=== PATIENT | female | born 1975 | race African-American/Black ===

== ENCOUNTER 2017-11-29 14:32 | Emergency (ER) | payer MEDICAID ==
[~2017-11-29] VITALS: Ht 154.9 cm; Wt 80.0 kg
[2017-11-29 14:57] VITALS: BP 122/81; Ht 154.9 cm; Wt 80.0 kg
[2017-11-29] MEDS ORDERED: AZO (14:58)
[2017-11-29] MEDS ORDERED: SULFADIAZINE500 MG PO (14:59)
== END 2017-11-29 16:00 | disposition left against medical advice (07) ==
LOC: D.ER 14:32
DX: R30.0 Dysuria (principal)

== ENCOUNTER 2018-02-19 19:24 | Emergency (ER) | payer MEDICAID ==
[~2018-02-19] VITALS: Ht 154.9 cm; Wt 83.9 kg
[~2018-02-19 19:24] MED LIST: AZO; SULFADIAZINE500 MG PO
[2018-02-19 19:34] VITALS: Ht 154.9 cm; Wt 83.9 kg
[2018-02-19 20:17] LABS: APPEARANCE HAZY (CLEAR); BILIRUBIN NEGATIVE (NEGATIVE); COLOR RED (YELLOW); GLUCOSE NEGATIVE (NEGATIVE); KETONE NEGATIVE (NEGATIVE); NITRITE NEGATIVE (NEGATIVE); PROTEIN 2+ mg/dL (NEGATIVE); SPECIFIC GRAVITY 1.015 (1.005-1.020); UROBILINOGEN NORMAL (NORMAL)
[2018-02-19 20:18] LABS: RED CELLS - URINE >50 /hpf (0-5)
[2018-02-19 20:19] LABS: BACTERIA FEW /hpf (NONE SEEN); EPITHELIAL CELLS 0-5 /hpf (0-5)
[2018-02-19 20:35] LABS: HCG URINE NEGATIVE (NEGATIVE)
[2018-02-19] MEDS ORDERED: PHENERGAN25 M1 PO (20:41)
[2018-02-19] MEDS ORDERED: MACROBID100 MG PO (20:41)
[2018-02-19] MEDS ORDERED: TORADOL10 MG PO (20:41)
[2018-02-19] MEDS ORDERED: SYMBICORT 16010.2 GM INH (20:41)
[2018-02-19 21:03] VITALS: BP 141/92
[2018-02-23 09:10] LABS: CHLAMYDIA TRACHOMATIS, NAA Negative (Negative)
== END 2018-02-19 21:04 | disposition home or self-care (01) ==
LOC: D.ER 19:24
PROVIDERS: Family Medicine
DX: R30.0 Dysuria (principal); N39.0 Urinary tract infection, site not specified; R10.30 Lower abdominal pain, unspecified; M54.5 Low back pain; I10 Essential (primary) hypertension; F17.200 Nicotine dependence, unspecified, uncomplicated

== ENCOUNTER 2018-11-01 09:00 | Emergency (ER) | payer MEDICAID ==
[~2018-11-01 09:00] MED LIST changes: +MACROBID100 MG PO; +PHENERGAN25 M1 PO; +SYMBICORT 16010.2 GM INH; +TORADOL10 MG PO
[2018-11-01 09:08] VITALS: Ht 154.9 cm
[2018-11-01] MEDS ORDERED: NORVASC10 MG (09:10)
[2018-11-01] MEDS ORDERED: HYDROCHLOROTH12.5 M1 (09:10)
[2018-11-01] MEDS ORDERED: CATAPRES0.1 MG (09:10)
[2018-11-01] MEDS ORDERED: SULFADIAZINE500 MG (09:11)
[2018-11-01] MEDS ORDERED: ROBAXIN500 MG PO (11:03)
[2018-11-01] MEDS ORDERED: BACTRIM 400-801 TAB PO (11:03)
[2018-11-01] MEDS ORDERED: NAPROSYN500 MG PO (11:03)
[2018-11-01 12:15] VITALS: BP 140/98
== END 2018-11-01 12:15 | disposition home or self-care (01) ==
LOC: D.ER 09:00
DX: L02.416 Cutaneous abscess of left lower limb (principal); S90.01XA Contusion of right ankle, initial encounter; W11.XXXA Fall on and from ladder, initial encounter; Y93.89 Activity, other specified; Y92.89 Other specified places as the place of occurrence of the external cause; S96.912A Strain of unspecified muscle and tendon at ankle and foot level, left foot, initial encounter

== ENCOUNTER 2019-08-12 16:53 | Emergency (ER) | payer OTHER ==
[~2019-08-12] VITALS: Ht 154.9 cm; Wt 82.8 kg
[~2019-08-12 16:53] MED LIST changes: +BACTRIM 400-801 TAB PO; +CATAPRES0.1 MG; +HYDROCHLOROTH12.5 M1; +NAPROSYN500 MG PO; +NORVASC10 MG; +ROBAXIN500 MG PO; +SULFADIAZINE500 MG
[2019-08-12 16:59] VITALS: Ht 154.9 cm; Wt 82.8 kg
[2019-08-12 17:37] LABS: BASOPHILS 0.7 % (0-2); EOSINOPHILS 2.4 % (0-7); HEMATOCRIT 41.1 % (36.0-48.0); HEMOGLOBIN 13.1 g/dL (12-16); IMMATURE GRANULOCYTES 0.1 % (0-5); LYMPHOCYTES 38.2 % (15-50); MCH 30.3 pg (26.0-34.0); MCHC 31.9 g/dL (31.0-37.0); MCV 95.1 fL (80.0-100.0); MONOCYTES 11.1 % (2-11); NEUTROPHILS 47.5 % (40-80); PLATELET COUNT 312 10x3/uL (130-400); RBC 4.32 10x6/uL (4.00-5.40); RDW 13.3 % (11.5-14.5); WBC 6.7 10x3/uL (4.8-10.8)
[2019-08-12 17:48] LABS: CALC OSMOLALITY 284 mosm/kg (275-300); CALCIUM 8.3 mg/dL (8.5-10.1); CHLORIDE - SERUM 105 mmol/L (98-107); CREATININE - SERUM 0.8 mg/dL (0.6-1.3); GLUCOSE 87 mg/dL (74-106); POTASSIUM - SERUM 3.7 mmol/L (3.5-5.1); SODIUM 142 mmol/L (136-145); UREA NITROGEN 22 mg/dL (7-18); eGFR NON AFRICAN AMERICAN 82 mL/min (90-120)
[2019-08-12 17:50] LABS: APTT 27.7 SECONDS (22.8-39.4); INR 0.99 (0.85-1.17); PROTIME 13.1 SECONDS (11.6-15.0)
[2019-08-12 17:54] LABS: ALBUMIN 3.6 g/dL (3.4-5.0); ALKALINE PHOSPHATASE 117 U/L (30-120); ALT (SGPT) 26 U/L (10-68); BILIRUBIN - TOTAL 0.27 mg/dL (0.2-1.3); PROTEIN - SERUM 7.5 g/dL (6.4-8.2)
[2019-08-12] MEDS ORDERED: AUGMENTIN 875-11 TAB PO (18:10)
[2019-08-12 18:28] LABS: BILIRUBIN NEGATIVE (NEGATIVE); GLUCOSE NEGATIVE (NEGATIVE); KETONE NEGATIVE (NEGATIVE); NITRITE NEGATIVE (NEGATIVE); SPECIFIC GRAVITY 1.015 (1.005-1.020); UROBILINOGEN NORMAL (NORMAL)
[2019-08-12 19:00] VITALS: BP 138/99
== END 2019-08-12 19:00 | disposition home or self-care (01) ==
LOC: D.ER 16:53
PROVIDERS: Family Medicine
DX: R51 Headache (principal); J32.9 Chronic sinusitis, unspecified; I10 Essential (primary) hypertension; Z72.0 Tobacco use

== ENCOUNTER 2019-09-03 03:28 | Emergency (ER) | payer OTHER ==
[~2019-09-03] VITALS: Ht 154.9 cm; Wt 79.5 kg
[~2019-09-03 03:28] MED LIST changes: +AUGMENTIN 875-11 TAB PO
[2019-09-03 03:36] VITALS: Ht 154.9 cm; Wt 79.5 kg
[2019-09-03] MEDS ORDERED: HYDROCHLOROTH12.5 M1 PO (04:29)
[2019-09-03] MEDS ORDERED: NORVASC10 MG PO (04:29)
[2019-09-03 04:51] VITALS: BP 151/97
== END 2019-09-03 04:53 | disposition home or self-care (01) ==
LOC: D.ER 03:28
DX: M25.552 Pain in left hip (principal); I10 Essential (primary) hypertension; M54.5 Low back pain; Z87.19 Personal history of other diseases of the digestive system